=== PATIENT | female | born 1990 | race Caucasian/White ===

== ENCOUNTER 2016-07-29 12:57 | Emergency (ER) | payer OTHER ==
--- NOTE | 2016-07-29 14:06 | EDDOCDS ---
Nurse's Notes [facility] Name: Margaret Tavera Age: 26 yrs Sex: Female : 1990 Arrival Date: 07/29/2016 Time: 12:57 Bed TR8 Private MD: Diagnosis: Chronic tension-type headache Presentation: 07/29 13:08 Presenting complaint: Patient states: that she has had a migraine for 5 days. This ms18 patient has no additional risk factors. Adult Sepsis Screening: The patient does not have new or worsening altered mentation. Patient's respiratory rate is less than 22. Systolic blood pressure is greater than 100. Patient has a qSOFA score of 0- Negative Sepsis Screen. Suicide/Homicide risk assessment- the patient denies having any suicidal and/or homicidal ideations and does not present with any other emotional, behavioral or mental health complaints. Status: Patient is not a mechanic field service or dependent. Transition of care: patient was not received from another setting of care. 13:08 Method Of Arrival: Walkin/Carried/Asstd ms18 13:08 Acuity: RUDOLPH Level 3 ms18 Triage Assessment: 13:09 Headache History: This headache is like all previous headaches. General: Appears in no ms18 apparent distress, Behavior is appropriate for age, cooperative. Pain: Pain currently is 8 out of 10 on a pain scale. Pain began 5 days ago Also complains of nausea, photophobia. HIV screening NA for this visit Offered previously. Neurological: Level of Consciousness is awake, alert, obeys commands, Oriented to person, place, time, Moves all extremities. Gait is steady, Speech is normal, Facial symmetry appears normal. Respiratory: No deficits noted. Derm: Skin is pink, warm & dry. 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 albuterol sulfate 90 mcg/actuation Inhl HFAA 1 puff every 4-6 hours as needed 2. Benadryl 25 mg Oral cap as needed 3. Excedrin Migraine 250-250-65 mg Oral tab as needed - PMHx: Asthma; Migraine Headaches; - PSHx: R eye; Appendectomy; - Social history: Smoking status: Patient uses tobacco products, current every day smoker. No barriers to communication noted, The patient speaks fluent Guyanese. - Family history: Not pertinent. - : The pt / caregiver states he / she is not on anticoagulants. Home medication list is obtained from the patient. - Exposure Risk Screening:: None identified. Screenin:56 Screening information is obtained from the patient. Fall risk: No risks identified. ttb Assistance ADL's: requires no assistance with activities of daily living. Abuse/DV Screen: The patient / caregiver reports he/she is: not in a situation that causes fear, pain or injury. Nutritional screening: No deficits noted. Advance Directives: Currently, there is no health care proxy. home support is adequate. Assessment: 13:56 General: Appears in no apparent distress, well nourished, well groomed, Behavior is ttb appropriate for age, cooperative, pleasant. Pain: Location: head. Neurological: Level of Consciousness is awake, alert, Oriented to person, place, time, Moves all extremities. Gait is steady, Speech is normal, Facial symmetry appears normal. Cardiovascular: Chest pain is denied. Respiratory: No deficits noted. Airway is patent Respiratory effort is even, unlabored, Denies cough, shortness of breath. Derm: Skin is normal. Injury Description: No known injury. 13:57 General: pt states she is still waiting to get into neurologist....medicaid cab ttb requested and called per request. Vital Signs: 12:59 BP 115 / 65; Pulse 89; Resp 18; Temp 98.4(O); Pulse Ox 99% on R/A; Weight 52.16 kg (R); elp Height 5 ft. 7 in. (170.18 cm) (R); Pain 8/10; 12:59 Body Mass Index 18.01 (52.16 kg, 170.18 cm) [facility] Vitals: 12:59 Log In Time: July 29, 2016 at 12:57. [facility] ED Course: 12:58 Patient visited by Juliana Lorenzo PCA. elp 12:58 Patient moved to Waiting elp 12:59 Patient visited by Juliana Lorenzo PCA. elp 12:59 Patient moved to Pre RCE elp 13:08 Triage Initiated ms18 13:11 Patient moved to Triage 1 ms18 13:38 [facility] Wick [facility] btw 13:39 Saurav Renee MD is Attending Physician. btw 13:39 Patient visited by Brody Wick PA. btw 13:56 The patient / caregiver is instructed regarding the plan of care and ED course. Patient ttb has correct armband on for positive identification. 13:56 No IV's were initiated during this patient's visit. No procedures done that require ttb assistance. 14:04 Patient moved to TR8 jb5 Order Results: There are currently no results for this order. Outcome: 13:46 Discharge ordered by Provider. btw 13:56 Discharge Assessment: Patient awake, alert and oriented x 3. No cognitive and/or ttb functional deficits noted. Patient verbalized understanding of disposition instructions. Patient awake and alert. patient administered narcotics - no. The following High Risk Discharge criteria are identified: None. Discharged to home ambulatory. Condition: good Condition: stable. Discharge instructions given to patient, Instructed on discharge instructions, follow up and referral plans. medication usage, Demonstrated understanding of instructions, medications, Pt was receptive of discharge instructions/ teaching. Prescriptions given X 2. No special radiology studies were completed. Property :Personal belongings accompany Pt. 14:06 Patient left the ED. ttb Signatures: Dunia Souza, SLIMER SLIMER jb5 Brody Wick PA PA btEmily Carter, RN RN ttb Juliana Lorenzo, SLIMER SLIMER khuship Itzel Hernandez,RN RN ms18 Corrections: (The following items were deleted from the chart) 13:10 13:08 Acuity: RUDOLPH Level 4 ms18 ms18 MTDD
--- NOTE | 2016-07-29 14:06 | EDDOCDS ---
Physician Documentation [facility] Name: Mragaret Tavera Age: 26 yrs Sex: Female : 1990 Arrival Date: 07/29/2016 Time: 12:57 Bed TR8 Private MD: Disposition: 07/29/16 13:46 Discharged to Home/Self Care. Impression: Chronic tension-type headache. - Condition is Stable. - Discharge Instructions: Tension Headache, [id number]. - Prescriptions for Robaxin 500 mg Oral Tablet - take 1 tablet by ORAL route every 6 hours As needed; 40 tablet. etodolac 200 mg Oral Capsule - take 1 capsule by ORAL route 3 times per day; 30 capsule. - Medication Reconciliation, Local Pharmacy Hours form. - Follow up: Private Physician; When: Call to arrange an appointment; Reason: Further diagnostic work-up, Recheck today's complaints, Continuance of care. - Problem is an ongoing problem. - Symptoms are unchanged. Historical: - Allergies: Bactrim; PENICILLINS; - Home Meds: 1. albuterol sulfate 90 mcg/actuation Inhl HFAA 1 puff every 4-6 hours as needed 2. Benadryl 25 mg Oral cap as needed 3. Excedrin Migraine 250-250-65 mg Oral tab as needed - PMHx: Asthma; Migraine Headaches; - PSHx: R eye; Appendectomy; - Social history: Smoking status: Patient uses tobacco products, current every day smoker. No barriers to communication noted, The patient speaks fluent Albanian. - Family history: Not pertinent. - : The pt / caregiver states he / she is not on anticoagulants. Home medication list is obtained from the patient. - Exposure Risk Screening:: None identified. 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 7 in. (170.18 cm) (R); Pain 8/10; 12:59 Body Mass Index 18.01 (52.16 kg, 170.18 cm) elp Signatures: Brody Wick PA PA btw Conner, Teresa, RN RN ttb Itzel Hernandez,OPAL RN ms18 SHANNOND
--- NOTE | 2016-07-31 15:07 | EDDOCDS ---
Physician Documentation [facility] Name: Margaret Tavera Age: 26 yrs Sex: Female : 1990 Arrival Date: 07/29/2016 Time: 12:57 Bed TR8 Private MD: Disposition: 07/29/16 13:46 Discharged to Home/Self Care. Impression: Chronic tension-type headache. - Condition is Stable. - Discharge Instructions: Tension Headache, [id number]. - Prescriptions for Robaxin 500 mg Oral Tablet - take 1 tablet by ORAL route every 6 hours As needed; 40 tablet. etodolac 200 mg Oral Capsule - take 1 capsule by ORAL route 3 times per day; 30 capsule. - Medication Reconciliation, Local Pharmacy Hours form. - Follow up: Private Physician; When: Call to arrange an appointment; Reason: Further diagnostic work-up, Recheck today's complaints, Continuance of care. - Problem is an ongoing problem. - Symptoms are unchanged. Historical: - Allergies: Bactrim; PENICILLINS; - Home Meds: 1. albuterol sulfate 90 mcg/actuation Inhl HFAA 1 puff every 4-6 hours as needed 2. Benadryl 25 mg Oral cap as needed 3. Excedrin Migraine 250-250-65 mg Oral tab as needed - PMHx: Asthma; Migraine Headaches; - PSHx: R eye; Appendectomy; - Social history: Smoking status: Patient uses tobacco products, current every day smoker. No barriers to communication noted, The patient speaks fluent Divehi. - Family history: Not pertinent. - : The pt / caregiver states he / she is not on anticoagulants. Home medication list is obtained from the patient. - Exposure Risk Screening:: None identified. 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 7 in. (170.18 cm) (R); Pain 8/10; 12:59 Body Mass Index 18.01 (52.16 kg, 170.18 cm) elp MDM: 14:19 [facility] Payment Agreement was scanned into [employer] and attached to record. lg 15:38 T-Sheet-- Draft Copy was scanned into [employer] and attached to record. gb Signatures: Lynne Jimenez, Reg Reg gb Lola Lakhani, Reg Reg lg Brody Wick PA PA btw Conner, Teresa RN RN ttb Itzel Hernandez RN RN ms18 The chart was reviewed and I authenticate all verbal orders and agree with the evaluation and treatment provided.Attachments: 14:19 [facility] Payment Agreement lg 15:38 T-Sheet-- Draft Copy gb Chart Complete MTDD
--- NOTE | 2016-07-31 15:07 | EDDOCDS ---
Nurse's Notes [facility] Name: Margaret Tavera Age: 26 yrs Sex: Female : 1990 Arrival Date: 07/29/2016 Time: 12:57 Bed TR8 Private MD: Diagnosis: Chronic tension-type headache Presentation: 07/29 13:08 Presenting complaint: Patient states: that she has had a migraine for 5 days. This ms18 patient has no additional risk factors. Adult Sepsis Screening: The patient does not have new or worsening altered mentation. Patient's respiratory rate is less than 22. Systolic blood pressure is greater than 100. Patient has a qSOFA score of 0- Negative Sepsis Screen. Suicide/Homicide risk assessment- the patient denies having any suicidal and/or homicidal ideations and does not present with any other emotional, behavioral or mental health complaints. Status: Patient is not a environmental services coordinator or dependent. Transition of care: patient was not received from another setting of care. 13:08 Method Of Arrival: Walkin/Carried/Asstd ms18 13:08 Acuity: RUDOLPH Level 3 ms18 Triage Assessment: 13:09 Headache History: This headache is like all previous headaches. General: Appears in no ms18 apparent distress, Behavior is appropriate for age, cooperative. Pain: Pain currently is 8 out of 10 on a pain scale. Pain began 5 days ago Also complains of nausea, photophobia. HIV screening NA for this visit Offered previously. Neurological: Level of Consciousness is awake, alert, obeys commands, Oriented to person, place, time, Moves all extremities. Gait is steady, Speech is normal, Facial symmetry appears normal. Respiratory: No deficits noted. Derm: Skin is pink, warm & dry. 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 albuterol sulfate 90 mcg/actuation Inhl HFAA 1 puff every 4-6 hours as needed 2. Benadryl 25 mg Oral cap as needed 3. Excedrin Migraine 250-250-65 mg Oral tab as needed - PMHx: Asthma; Migraine Headaches; - PSHx: R eye; Appendectomy; - Social history: Smoking status: Patient uses tobacco products, current every day smoker. No barriers to communication noted, The patient speaks fluent Anguillan. - Family history: Not pertinent. - : The pt / caregiver states he / she is not on anticoagulants. Home medication list is obtained from the patient. - Exposure Risk Screening:: None identified. Screenin:56 Screening information is obtained from the patient. Fall risk: No risks identified. ttb Assistance ADL's: requires no assistance with activities of daily living. Abuse/DV Screen: The patient / caregiver reports he/she is: not in a situation that causes fear, pain or injury. Nutritional screening: No deficits noted. Advance Directives: Currently, there is no health care proxy. home support is adequate. Assessment: 13:56 General: Appears in no apparent distress, well nourished, well groomed, Behavior is ttb appropriate for age, cooperative, pleasant. Pain: Location: head. Neurological: Level of Consciousness is awake, alert, Oriented to person, place, time, Moves all extremities. Gait is steady, Speech is normal, Facial symmetry appears normal. Cardiovascular: Chest pain is denied. Respiratory: No deficits noted. Airway is patent Respiratory effort is even, unlabored, Denies cough, shortness of breath. Derm: Skin is normal. Injury Description: No known injury. 13:57 General: pt states she is still waiting to get into neurologist....medicaid cab ttb requested and called per request. Vital Signs: 12:59 BP 115 / 65; Pulse 89; Resp 18; Temp 98.4(O); Pulse Ox 99% on R/A; Weight 52.16 kg (R); elp Height 5 ft. 7 in. (170.18 cm) (R); Pain 8/10; 12:59 Body Mass Index 18.01 (52.16 kg, 170.18 cm) [facility] Vitals: 12:59 Log In Time: July 29, 2016 at 12:57. [facility] ED Course: 12:58 Patient visited by Juliana Lorenzo PCA. elp 12:58 Patient moved to Waiting elp 12:59 Patient visited by Juliana Lorenzo PCA. elp 12:59 Patient moved to Pre RCE elp 13:08 Triage Initiated ms18 13:11 Patient moved to Triage 1 ms18 13:38 [facility]. btw 13:39 Saurav Renee MD is Attending Physician. btw 13:39 Patient visited by Brody Wick PA. btw 13:56 The patient / caregiver is instructed regarding the plan of care and ED course. Patient ttb has correct armband on for positive identification. 13:56 No IV's were initiated during this patient's visit. No procedures done that require ttb assistance. 14:04 Patient moved to 8 5 14:19 [facility] Payment Agreement was scanned into [employer] and attached to record. lg 15:38 T-Sheet-- Draft Copy was scanned into [employer] and attached to record. gb Order Results: There are currently no results for this order. Outcome: 13:46 Discharge ordered by Provider. btw 13:56 Discharge Assessment: Patient awake, alert and oriented x 3. No cognitive and/or ttb functional deficits noted. Patient verbalized understanding of disposition instructions. Patient awake and alert. patient administered narcotics - no. The following High Risk Discharge criteria are identified: None. Discharged to home ambulatory. Condition: good Condition: stable. Discharge instructions given to patient, Instructed on discharge instructions, follow up and referral plans. medication usage, Demonstrated understanding of instructions, medications, Pt was receptive of discharge instructions/ teaching. Prescriptions given X 2. No special radiology studies were completed. Property :Personal belongings accompany Pt. 14:06 Patient left the ED. ttb Signatures: Lynne Jimenez, Reg Reg gb Lola Lakhani, Reg Reg lg Dunia Souza, MEDICAL RECORDS ASSISTANT MEDICAL RECORDS ASSISTANT jb5 Brody Wick PA PA btw Conner, Teresa RN RN ttb Juliana Lorenzo, MEDICAL RECORDS ASSISTANT MEDICAL RECORDS ASSISTANT Itzel Elkins,OPAL RN ms18 Corrections: (The following items were deleted from the chart) 13:10 13:08 Acuity: RUDOLPH Level 4 ms18 ms18 Chart Complete MTDD
--- NOTE | 2016-07-31 15:07 | EDDOCDS ---
Physician Documentation [facility] Name: Margaret Tavera Age: 26 yrs Sex: Female : 1990 Arrival Date: 07/29/2016 Time: 12:57 Bed TR8 Private MD: Disposition: 07/29/16 13:46 Discharged to Home/Self Care. Impression: Chronic tension-type headache. - Condition is Stable. - Discharge Instructions: Tension Headache, [id number]. - Prescriptions for Robaxin 500 mg Oral Tablet - take 1 tablet by ORAL route every 6 hours As needed; 40 tablet. etodolac 200 mg Oral Capsule - take 1 capsule by ORAL route 3 times per day; 30 capsule. - Medication Reconciliation, Local Pharmacy Hours form. - Follow up: Private Physician; When: Call to arrange an appointment; Reason: Further diagnostic work-up, Recheck today's complaints, Continuance of care. - Problem is an ongoing problem. - Symptoms are unchanged. Historical: - Allergies: Bactrim; PENICILLINS; - Home Meds: 1. albuterol sulfate 90 mcg/actuation Inhl HFAA 1 puff every 4-6 hours as needed 2. Benadryl 25 mg Oral cap as needed 3. Excedrin Migraine 250-250-65 mg Oral tab as needed - PMHx: Asthma; Migraine Headaches; - PSHx: R eye; Appendectomy; - Social history: Smoking status: Patient uses tobacco products, current every day smoker. No barriers to communication noted, The patient speaks fluent Malay. - Family history: Not pertinent. - : The pt / caregiver states he / she is not on anticoagulants. Home medication list is obtained from the patient. - Exposure Risk Screening:: None identified. 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 7 in. (170.18 cm) (R); Pain 8/10; 12:59 Body Mass Index 18.01 (52.16 kg, 170.18 cm) elp MDM: 14:19 [facility] Payment Agreement was scanned into [employer] and attached to record. lg 15:38 T-Sheet-- Draft Copy was scanned into [employer] and attached to record. gb Signatures: Lynne Jimenez, Reg Reg gb Lola Lakhani, Reg Reg lg Brody Wick PA PA btw Conner, Teresa RN RN ttb Itzel Hernandez RN RN ms18 The chart was reviewed and I authenticate all verbal orders and agree with the evaluation and treatment provided.Attachments: 14:19 [facility] [place] Agreement lg 15:38 T-Sheet-- Draft Copy gb Chart Complete MTDD
== END 2016-07-29 14:06 | disposition home or self-care (01) ==
LOC: M ED 12:57
DX: G44.229 Chronic tension-type headache, not intractable (principal); J45.909 Unspecified asthma, uncomplicated; F17.200 Nicotine dependence, unspecified, uncomplicated; Z79.899 Other long term (current) drug therapy; Z88.0 Allergy status to penicillin; Z88.1 Allergy status to other antibiotic agents; G43.909 Migraine, unspecified, not intractable, without status migrainosus

== ENCOUNTER → 2016-07-29 | Outpatient (CLI) | payer OTHER ==
[2016-07-29 13:17] LABS: MEAN CORPUSCULAR HEMOGLOBIN 31.6 pg (27.0-33.0); MEAN CORPUSCULAR HGB CONC 33.1 g/dl (32.0-36.5); MEAN CORPUSCULAR VOLUME 95.4 fl (80.0-96.0); RED CELL DISTRIBUTION WIDTH 12.2 % (11.5-14.5); WHITE BLOOD COUNT 11.9 K/mm3 (4.0-10.0)
[2016-07-29 13:47] LABS: ALBUMIN 3.8 GM/DL (3.2-5.2); ALBUMIN/GLOBULIN RATIO 1.27 (1.00-1.93); ALKALINE PHOSPHATASE 75 U/L (45-117); ALT/SGPT 27 U/L (12-78); ANION GAP 5 MEQ/L (8-16); AST/SGOT 17 U/L (15-37); BILIRUBIN,TOTAL 0.2 MG/DL (0.2-1.0); BLOOD UREA NITROGEN 11 MG/DL (7-18); CALCIUM LEVEL 8.7 MG/DL (8.5-10.1); CARBON DIOXIDE LEVEL 29 MEQ/L (21-32); CHLORIDE LEVEL 110 MEQ/L (98-107); FOLATE 4.1 NG/ML (>5.4); FREE T4 0.99 NG/DL (0.76-1.46); GLOMERULAR FILTRATION RATE > 60.0 (>60); GLUCOSE, FASTING 81 MG/DL (70-105); POTASSIUM SERUM 4.6 MEQ/L (3.5-5.1); SODIUM LEVEL 144 MEQ/L (136-145); TOTAL PROTEIN 6.8 GM/DL (6.4-8.2); VITAMIN B12 LEVEL 325 PG/ML (247-911)
== END ==
LOC: M LAB 12:34
PROVIDERS: ATTEND Nurse Practitioner Family
DX: R63.4 Abnormal weight loss (principal)

== ENCOUNTER 2016-08-23 11:12 | Emergency (ER) | payer OTHER ==
[~2016-08-23] VITALS: Ht 172.7 cm; Wt 54.4 kg
[2016-08-23 11:41] VITALS: BP 110/62
--- NOTE | 2016-08-23 14:38 | REP ---
Anterior knee pain after trauma. COMPARISON: None. FINDINGS: The compartments are symmetric and relatively well maintained. There is no acute fracture or destructive osseous lesion. Signed by Fabián Delcid DO 08/23/2016 03:49 P
[2016-08-23] MEDS ORDERED: KEFL500C7 PO (14:39)
[2016-08-23] MEDS ORDERED: IBUP600T26 PO (14:40)
== END 2016-08-23 14:50 | disposition home or self-care (01) ==
LOC: M ED 12:44
DX: S81.011A Laceration without foreign body, right knee, initial encounter (principal); W22.8XXA Striking against or struck by other objects, initial encounter; Y92.099 Unspecified place in other non-institutional residence as the place of occurrence of the external cause; Y93.9 Activity, unspecified; Y99.9 Unspecified external cause status; Z88.0 Allergy status to penicillin; Z88.2 Allergy status to sulfonamides

== ENCOUNTER 2016-11-14 18:12 | Emergency (ER) | payer OTHER ==
[~2016-11-14] VITALS: Ht 170.2 cm; Wt 53.5 kg
[2016-11-14 18:12] VITALS: BP 111/64
[~2016-11-14 18:12] MED LIST: ALBU83IN INH; BENA25CA4 PO; EXCETAB80 PO; IBUP600T26 PO; KEFL500C7 PO; TRAM50TA2 PO; ZOFR4TAB3 PO
[2016-11-14] MEDS ORDERED: IBUP600T26 PO (18:30)
[2016-11-14] MEDS ORDERED: GABA600T (18:30)
[2016-11-15] MEDS ORDERED: BENA25TA9 PO (14:03)
[2016-11-15] MEDS ORDERED: VICO5TAB16 PO (15:08)
== END 2016-11-14 20:17 | disposition left against medical advice (07) ==
LOC: M ED 19:04
DX: Z53.29 Procedure and treatment not carried out because of patient's decision for other reasons (principal)

== ENCOUNTER 2016-11-15 13:52 | Emergency (ER) | payer OTHER ==
[~2016-11-15] VITALS: Ht 172.7 cm; Wt 53.5 kg
[~2016-11-15 13:52] MED LIST changes: +GABA600T
[2016-11-15 13:53] VITALS: BP 109/60
[2016-11-15] MEDS ORDERED: BENA25TA9 PO (14:03)
--- NOTE | 2016-11-15 14:38 | REP ---
Clinical: Left rib pain with recent trauma. Technique: Frontal view of the chest with multiple views of the left hemithorax. Findings: There is evidence for an acute nondisplaced lateral left sixth rib fracture. Subtle lateral seventh rib fracture cannot be excluded as well. No associated consolidation or pneumothorax. Impression: Nondisplaced left lateral sixth rib fracture. Possible seventh rib fracture cannot be excluded as well. Signed by Clinton Vega MD 11/15/2016 02:30 P
[2016-11-15] MEDS ORDERED: VICO5TAB16 PO (15:08)
[2016-11-15] MEDS ORDERED: NAPROXEN 250 MG TAB PO ONE (15:15)
== END 2016-11-15 15:28 | disposition home or self-care (01) ==
LOC: M ED 14:57
DX: S22.32XA Fracture of one rib, left side, initial encounter for closed fracture (principal); W50.0XXA Accidental hit or strike by another person, initial encounter; Y92.9 Unspecified place or not applicable; Y93.72 Activity, wrestling; Y99.9 Unspecified external cause status; F17.200 Nicotine dependence, unspecified, uncomplicated; Z79.899 Other long term (current) drug therapy; Z88.0 Allergy status to penicillin

== ENCOUNTER 2017-02-28 15:51 | Emergency (ER) | payer OTHER ==
[~2017-02-28] VITALS: Ht 170.2 cm; Wt 50.0 kg
[~2017-02-28 15:51] MED LIST changes: +BENA25TA10 PO; +IBUP-1022 PO; -IBUP600T26 PO; +KEFL500C17 PO; -KEFL500C7 PO; +VICO5TAB16 PO
[2017-02-28 15:53] VITALS: BP 110/67
[2017-02-28] MEDS ORDERED: ULTR50TA8 PO (17:57)
[2017-02-28] MEDS ORDERED: traMADol 50 MG TAB PO ONE (18:00)
[2017-02-28] MEDS ORDERED: ONDANSETRON 4 MG ORAL DISINTEGRATING TAB (S0181) PO ONE (18:00)
== END 2017-02-28 18:22 | disposition home or self-care (01) ==
LOC: M ED 15:51
DX: G43.909 Migraine, unspecified, not intractable, without status migrainosus (principal); F17.200 Nicotine dependence, unspecified, uncomplicated; Z79.899 Other long term (current) drug therapy; Z88.0 Allergy status to penicillin

== ENCOUNTER → 2017-03-07 | Outpatient (CLI) | payer OTHER ==
[~2017-03-07] MED LIST changes: +ULTR50TA8 PO
--- NOTE | 2017-03-07 10:49 | REP ---
CT MAXILLOFACIAL WITHOUT CONTRAST: 03/07/2017. Clinical history: Sinus nasal cyst. Findings: No prior study. Noncontrast technique utilized with coronal reconstruction. The nasal septum is midline. Computer Forensic Examiner image shows the patient is edentulous. There is a metallic tongue stud in the midline as well. Sphenoid sinuses, ethmoid and frontal sinuses in the right maxillary sinus are clear. Floor of the left maxillary sinus is a mucous retention cyst 2.1 x 1.9 x 1.7 cm. There is no destructive bone lesion or thickening of the sinus campos. Nasal bones and the nasal spine of the maxilla were intact. The left orbit shows normal globe and contents. The right orbit shows a postoperative change. This is stable since the CT brain in 2012. The ostiomeatal complexes are patent with no stenosis of the ostium or infundibulum. Hiatus semilunaris intact. No barbara bullosa of the middle turbinates. Bony skull base and mastoids intact. Impression: 1. 2.1 x 1.9 x 1.7 cm mucous retention cyst floor of the left maxillary sinus. The other sinuses and all the mastoids intact. 2. No acute bony finding. There are postoperative changes in the right orbit and globe. 3. No other significant finding. Signed by Ramsey Heck MD 03/07/2017 04:11 P
== END ==
LOC: M RAD 10:10
PROVIDERS: ATTEND Nurse Practitioner Family
DX: J34.1 Cyst and mucocele of nose and nasal sinus (principal)

== ENCOUNTER → 2017-05-29 | Outpatient (CLI) | payer OTHER ==
[2017-05-29 14:53] LABS: FREE T4 0.93 NG/DL (0.76-1.46)
== END ==
LOC: M LAB 13:14
PROVIDERS: ATTEND Nurse Practitioner Family
DX: R94.6 Abnormal results of thyroid function studies (principal)

== ENCOUNTER → 2017-06-14 | Outpatient (REF) | payer OTHER | LOC: M LAB REF 18:56 | PROVIDERS: ATTEND Obstetrics & Gynecology | DX: Z12.4 Encounter for screening for malignant neoplasm of cervix (principal); B96.89 Other specified bacterial agents as the cause of diseases classified elsewhere ==

== ENCOUNTER → 2017-09-25 | Outpatient (CLI) | payer OTHER ==
[2017-09-25 16:14] LABS: HCG, SERUM QUANTITATIVE 30967 MIU/ML
== END ==
LOC: M LAB 14:55
DX: N91.2 Amenorrhea, unspecified (principal)
CPT/HCPCS: 84702

== ENCOUNTER 2017-11-23 17:07 | Emergency (ER) | payer OTHER, MEDICAID | END 2017-11-23 17:54 | disposition admitted as inpatient to this hospital (09) | LOC: M ED 17:07 | DX: Z04.1 Encounter for examination and observation following transport accident (principal); O26.892 Other specified pregnancy related conditions, second trimester; R10.2 Pelvic and perineal pain; V49.59XA Passenger injured in collision with other motor vehicles in traffic accident, initial encounter; Y92.410 Unspecified street and highway as the place of occurrence of the external cause; Z3A.27 27 weeks gestation of pregnancy; Z88.0 Allergy status to penicillin; Z88.2 Allergy status to sulfonamides; Z88.8 Allergy status to other drugs, medicaments and biological substances | CPT/HCPCS: 99283 ==

== ENCOUNTER 2017-11-23 17:57 | Outpatient (CLI) | payer OTHER | END 2017-11-23 19:40 | disposition home or self-care (01) | LOC: M LDO 17:57 | DX: Z04.3 Encounter for examination and observation following other accident (principal); R10.9 Unspecified abdominal pain; Z3A.27 27 weeks gestation of pregnancy | CPT/HCPCS: G0463 ==

== ENCOUNTER → 2018-01-01 | Outpatient (REF) | payer OTHER ==
[2018-01-01 22:13] LABS: APPEARANCE, URINE CLOUDY (CLEAR); BACTERIA, URINE AUTO 1+ (NEGATIVE); BILIRUBIN, URINE AUTO NEGATIVE (NEGATIVE); BLOOD, URINE BLOOD NEGATIVE (NEGATIVE); CALCIUM OXALATE CRYSTALS SMALL; COLOR, URINE AMBER (YELLOW); GLUCOSE, URINE (UA) AUTO NEGATIVE (NEGATIVE); KETONE, URINE AUTO TRACE mg/dL (NEGATIVE); LEUKOCYTE ESTERASE, URINE AUTO 2+ (NEGATIVE); MUCUS, URINE SMALL (NEGATIVE); NITRITE, URINE AUTO NEGATIVE (NEGATIVE); PROTEIN, URINE AUTO 1+ mg/dL (NEGATIVE); RBC, URINE AUTO 3 /HPF (0-3); SPECIFIC GRAVITY URINE AUTO 1.025 (1.002-1.035); SQUAMOUS EPITHELIAL CELL UR AU 7 /HPF (0-6); WBC, URINE AUTO 9 /HPF (0-3)
== END ==
LOC: M LAB REF 09:07
DX: N39.0 Urinary tract infection, site not specified (principal)

== ENCOUNTER 2018-01-03 15:01 | Emergency (ER) | payer OTHER | END 2018-01-03 16:03 | disposition admitted as inpatient to this hospital (09) | LOC: M ED 15:01 | DX: M54.9 Dorsalgia, unspecified (principal) ==

== ENCOUNTER 2018-01-03 16:08 | Observation (INO) | payer OTHER ==
[2018-01-03 16:56] LABS: APPEARANCE, URINE CLOUDY (CLEAR); BACTERIA, URINE AUTO 1+ (NEGATIVE); BILIRUBIN, URINE AUTO NEGATIVE (NEGATIVE); BLOOD, URINE BLOOD NEGATIVE (NEGATIVE); COLOR, URINE YELLOW (YELLOW); GLUCOSE, URINE (UA) AUTO 1+ mg/dL (NEGATIVE); KETONE, URINE AUTO TRACE mg/dL (NEGATIVE); LEUKOCYTE ESTERASE, URINE AUTO 3+ (NEGATIVE); MUCUS, URINE SMALL (NEGATIVE); NITRITE, URINE AUTO NEGATIVE (NEGATIVE); PROTEIN, URINE AUTO NEGATIVE (NEGATIVE); RBC, URINE AUTO 8 /HPF (0-3); SPECIFIC GRAVITY URINE AUTO 1.011 (1.002-1.035); SQUAMOUS EPITHELIAL CELL UR AU 14 /HPF (0-6); UROBILINOGEN, URINE AUTO 0.2 mg/dL (0.0-2.0); WBC, URINE AUTO 25 /HPF (0-3)
[2018-01-03] MEDS: LACTATED RINGER'S 1000 ML IV ×2 (17:58)
[2018-01-03] MEDS: LR 1,000 ML IV ×4 (17:58→22:58)
[2018-01-03 17:59] LABS: BASO # 0.1 10^3/uL (0.0-0.2); BASO % 0.5 % (0.0-1.0); EOS # 0.4 10^3/uL (0.0-0.50); EOS % 2.3 % (0.0-3.0); HEMATOCRIT 30.6 % (36.0-47.0); HEMOGLOBIN 10.3 g/dl (12.0-15.5); IMMATURE GRANULOCYTE % 0.9 % (0-3.0); LYMPH # 3.4 10^3/uL (1.5-6.5); LYMPH % 20.3 % (24.0-44.0); MEAN CORPUSCULAR HEMOGLOBIN 30.5 pg (27.0-33.0); MEAN CORPUSCULAR HGB CONC 33.7 g/dl (32.0-36.5); MEAN CORPUSCULAR VOLUME 90.5 fl (80.0-96.0); MONO # 1.2 10^3/uL (0.0-0.8); MONO % 6.8 % (0.0-5.0); NEUTROPHILS # 11.7 10^3/uL (1.8-7.7); NEUTROPHILS % 69.2 % (36.0-66.0); PLATELET COUNT, AUTOMATED 344 10^3/uL (150-450); RED BLOOD COUNT 3.38 10^6/uL (4.00-5.40); RED CELL DISTRIBUTION WIDTH 12.7 % (11.5-14.5); WHITE BLOOD COUNT 16.9 10^3/uL (4.0-10.0)
[2018-01-03 18:23] LABS: ALBUMIN 2.5 GM/DL (3.2-5.2); ALBUMIN/GLOBULIN RATIO 0.76 (1.00-1.93); ALKALINE PHOSPHATASE 163 U/L (45-117); ALT/SGPT 18 U/L (12-78); ANION GAP 8 MEQ/L (8-16); AST/SGOT 17 U/L (7-37); BILIRUBIN,TOTAL 0.2 MG/DL (0.2-1.0); BLOOD UREA NITROGEN 5 MG/DL (7-18); CALCIUM LEVEL 8.1 MG/DL (8.5-10.1); CARBON DIOXIDE LEVEL 25 MEQ/L (21-32); CHLORIDE LEVEL 107 MEQ/L (98-107); CREATININE FOR GFR 0.36 MG/DL (0.55-1.30); GLOMERULAR FILTRATION RATE > 60.0 (>60); GLUCOSE, FASTING 74 MG/DL (70-100); POTASSIUM SERUM 3.9 MEQ/L (3.5-5.1); SODIUM LEVEL 140 MEQ/L (136-145); TOTAL PROTEIN 5.8 GM/DL (6.4-8.2)
[2018-01-03] MEDS ORDERED: ACETAMINOPHEN TAB 650MG DOSE (2X325MG) PO ×2 (21:15)
[2018-01-03] MEDS: CYCLOBENZAPRINE 10 MG TAB PO ×2 (21:38)
[2018-01-03] MEDS: NICOTINE 14 MG/24 HR TRANSDERMAL TD ×2 (21:40)
[2018-01-03] MEDS: PERCOCET 5MG/325MG TAB PO ×2 (22:58)
[2018-01-04] MEDS: LR 1,000 ML IV ×6 (04:26→15:23)
[2018-01-04] MEDS: PERCOCET 5MG/325MG TAB PO ×4 (08:01→15:28)
[2018-01-04 08:08] LABS: BASO # 0.1 10^3/uL (0.0-0.2); BASO % 0.7 % (0.0-1.0); EOS # 0.4 10^3/uL (0.0-0.50); EOS % 3.6 % (0.0-3.0); HEMATOCRIT 28.9 % (36.0-47.0); HEMOGLOBIN 9.6 g/dl (12.0-15.5); IMMATURE GRANULOCYTE % 0.7 % (0-3.0); LYMPH # 2.7 10^3/uL (1.5-6.5); LYMPH % 23.2 % (24.0-44.0); MEAN CORPUSCULAR HEMOGLOBIN 30.8 pg (27.0-33.0); MEAN CORPUSCULAR HGB CONC 33.2 g/dl (32.0-36.5); MEAN CORPUSCULAR VOLUME 92.6 fl (80.0-96.0); MONO # 0.9 10^3/uL (0.0-0.8); MONO % 7.9 % (0.0-5.0); NEUTROPHILS # 7.4 10^3/uL (1.8-7.7); NEUTROPHILS % 63.9 % (36.0-66.0); PLATELET COUNT, AUTOMATED 320 10^3/uL (150-450); RED BLOOD COUNT 3.12 10^6/uL (4.00-5.40); RED CELL DISTRIBUTION WIDTH 12.7 % (11.5-14.5); WHITE BLOOD COUNT 11.5 10^3/uL (4.0-10.0)
[2018-01-04] MEDS: NICOTINE 14 MG/24 HR TRANSDERMAL TD ×2 (09:00)
== END 2018-01-05 10:04 | disposition home or self-care (01) ==
LOC: M LDO 16:08 → M OBS 01-04 16:00 → M LDO 01-04 15:22 → M OBS 01-04 15:23 → M SDC 01-04 15:23 → M OBS 01-04 15:24 → M LDO 01-04 16:00 → M SDC 01-05 10:04 → M OBS 01-05 10:04 → M SDC 01-04 15:24 → M OBS 01-04 15:22 → M LDO 01-04 07:00 → M SDC 16:09 → M OBS 01-04 15:24 → M SDC 01-05 10:04 → M OBS 01-05 10:04 → M SDC 01-04 15:24 → M OBS 16:09
DX: O23.43 Unspecified infection of urinary tract in pregnancy, third trimester (principal); Z3A.31 31 weeks gestation of pregnancy
CPT/HCPCS: J0690

== ENCOUNTER → 2018-01-15 | Outpatient (CLI) | payer OTHER | LOC: M RAD 10:04 | DX: Z34.82 Encounter for supervision of other normal pregnancy, second trimester (principal) | CPT/HCPCS: 76816 ==

== ENCOUNTER → 2018-01-15 | Outpatient (CLI) | payer OTHER ==
[2018-01-15 12:13] LABS: BASO # 0.1 10^3/uL (0.0-0.2); BASO % 0.7 % (0.0-1.0); EOS # 0.2 10^3/uL (0.0-0.50); EOS % 1.8 % (0.0-3.0); HEMATOCRIT 30.3 % (36.0-47.0); HEMOGLOBIN 10.1 g/dl (12.0-15.5); IMMATURE GRANULOCYTE % 0.7 % (0-3.0); LYMPH # 2.7 10^3/uL (1.5-6.5); LYMPH % 22.7 % (24.0-44.0); MEAN CORPUSCULAR HEMOGLOBIN 29.8 pg (27.0-33.0); MEAN CORPUSCULAR HGB CONC 33.3 g/dl (32.0-36.5); MEAN CORPUSCULAR VOLUME 89.4 fl (80.0-96.0); MONO # 0.8 10^3/uL (0.0-0.8); MONO % 6.8 % (0.0-5.0); NEUTROPHILS # 7.9 10^3/uL (1.8-7.7); NEUTROPHILS % 67.3 % (36.0-66.0); PLATELET COUNT, AUTOMATED 365 10^3/uL (150-450); RED BLOOD COUNT 3.39 10^6/uL (4.00-5.40); RED CELL DISTRIBUTION WIDTH 12.7 % (11.5-14.5); WHITE BLOOD COUNT 11.7 10^3/uL (4.0-10.0)
[2018-01-15 13:18] LABS: GLUCOSE CHALLENGE TEST 1 HOUR 172 MG/DL (LESS THAN 140)
== END ==
LOC: M LAB 10:30
DX: Z34.82 Encounter for supervision of other normal pregnancy, second trimester (principal); Z36.89 Encounter for other specified antenatal screening
CPT/HCPCS: 82950

== ENCOUNTER → 2018-02-05 | Outpatient (REF) | payer OTHER | LOC: M LAB REF 13:05 | DX: Z34.83 Encounter for supervision of other normal pregnancy, third trimester (principal) ==

== ENCOUNTER 2018-02-18 21:02 | Inpatient (IN) | payer OTHER ==
[2018-02-18] MEDS: LACTATED RINGER'S 1000 ML IV (21:33)
[2018-02-18] MEDS ORDERED: LR 1,000 ML IV (21:33)
[2018-02-18] MEDS ORDERED: OXYTOCIN 30 UNITS IN 0.9% NaCl 500ML IV BAG (J2590) As Ordered (21:45)
[2018-02-18] MEDS ORDERED: FENTANYL 2MCG/ML ROPIVACAINE 0.2% IN 0.9% NACL 200ML IVBAG As Ordered (21:46)
[2018-02-18 21:52] LABS: HEMATOCRIT 31.1 % (36.0-47.0); HEMOGLOBIN 10.2 g/dl (12.0-15.5); MEAN CORPUSCULAR HEMOGLOBIN 28.5 pg (27.0-33.0); MEAN CORPUSCULAR HGB CONC 32.8 g/dl (32.0-36.5); MEAN CORPUSCULAR VOLUME 86.9 fl (80.0-96.0); PLATELET COUNT, AUTOMATED 353 10^3/uL (150-450); RED BLOOD COUNT 3.58 10^6/uL (4.00-5.40); RED CELL DISTRIBUTION WIDTH 13.1 % (11.5-14.5)
[2018-02-18 22:22] LABS: AMPHETAMINES URINE REFLEX NEGATIVE (NEGATIVE); BARBITURATES URINE REFLEX NEGATIVE (NEGATIVE); BENZODIAZEPINES URINE REFLEX NEGATIVE (NEGATIVE); COCAINE METABOLITE URINE REFLE NEGATIVE (NEGATIVE); METHADONE URINE REFLEX NEGATIVE (NEGATIVE); OPIATES URINE REFLEX NEGATIVE (NEGATIVE); PHENCYCLIDINE URINE REFLEX NEGATIVE (NEGATIVE)
[2018-02-18 22:35] LABS: CANNABINOIDS URINE REFLEX PENDING CONFIRMATION (NEGATIVE)
[2018-02-18] MEDS ORDERED: FENTANYL/ROPIVACAINE/NACL BAG 200 ML EPIDURAL (23:15)
[2018-02-18] MEDS ORDERED: ePHEDrine SULFATE 25 MG/5 ML(5MG/ML) SYRINGE IV (23:15)
[2018-02-18] MEDS ORDERED: ONDANSETRON 4MG/2ML VIAL (J2405) IV (23:15)
[2018-02-18] MEDS ORDERED: NALOXONE INJ 0.4 MG/1 ML VIAL (J2310) IV (23:15)
[2018-02-18] MEDS ORDERED: diphenhydrAMINE INJ 50MG/ML VIAL (J1200) IV (23:15)
[2018-02-18] MEDS ORDERED: EPIDURAL/PCA KEYS XX (23:15)
[2018-02-18] MEDS ORDERED: REFRIGERATOR IV KEYS XX (23:15)
[2018-02-18] MEDS ORDERED: EPIDURAL COMMENT XX (23:15)
[2018-02-19] MEDS: OXYTOCIN DRIP 30 UNITS in APPROPRIATE DILUENT 1 EA IV (01:08)
[2018-02-19] MEDS: LR 1,000 ML IV (01:08)
[2018-02-19] MEDS ORDERED: MEASLES,MUMPS,RUBELLA VACCINE INJ (MMR-II) (90707) SC (01:15)
[2018-02-19] MEDS ORDERED: ONDANSETRON 4MG/2ML VIAL (J2405) IV (01:15)
[2018-02-19] MEDS ORDERED: DIBUCAINE 1% OINTMENT 30GM TOP (01:15)
[2018-02-19] MEDS ORDERED: RHOGAM 300 MCG (1500 IU) INJ (J2790) IM (01:15)
[2018-02-19] MEDS ORDERED: DOCUSATE SODIUM 100 MG CAP PO (01:15)
[2018-02-19] MEDS ORDERED: PROMETHAZINE 25 MG TAB PO (01:15)
[2018-02-19] MEDS: IBUPROFEN 800 MG TAB PO ×3 (02:04→20:28)
[2018-02-19] MEDS: ACETAMINOPHEN 500 MG TAB PO ×2 (07:52→17:35)
[2018-02-19] MEDS: PRENATAL VITAMINS CHEWABLE TABLET PO (07:53)
[2018-02-19] MEDS: oxyCODONE 5MG TAB PO ×2 (13:22→20:28)
[2018-02-19] MEDS: NICOTINE 14 MG/24 HR TRANSDERMAL TD (17:28)
[2018-02-20] MEDS: IBUPROFEN 800 MG TAB PO ×2 (05:17→11:57)
[2018-02-20] MEDS: ACETAMINOPHEN 500 MG TAB PO ×2 (05:17→15:10)
[2018-02-20] MEDS: oxyCODONE 5MG TAB PO ×2 (05:17→11:57)
[2018-02-20] MEDS: PRENATAL VITAMINS CHEWABLE TABLET PO (09:55)
[2018-02-20] MEDS: NICOTINE 14 MG/24 HR TRANSDERMAL TD (11:56)
[2018-02-20] MEDS: ADACEL/BOOSTRIX VACCINE (DIPHTH/PERTUSS/ACELL/TETANUS)0.5ML SYR (90715) IM (15:09)
[2018-02-20] MEDS: medroxyPROGESTERone ACET IM SUSP 150 MG/ML VIAL (J1050) IM (15:10)
[2018-02-22 10:50] LABS: Cannabinoid Positive (.); GC Carboxy THC 483 ng/mL (Cutoff=10)
== END 2018-02-20 17:35 | disposition home or self-care (01) | DRG 560 ==
LOC: M LDO 21:02 → M OBS 02-19 03:10 → M LDI 21:24
PROVIDERS: Obstetrics & Gynecology
PROC: 10E0XZZ Delivery of Products of Conception, External Approach (ICD-10-PCS; principal; 2018-02-19)
DX: O80 Encounter for full-term uncomplicated delivery (principal); Z37.0 Single live birth; Z3A.39 39 weeks gestation of pregnancy

== ENCOUNTER 2018-04-25 12:50 | Emergency (ER) | payer OTHER ==
[2018-04-25] MEDS: NS 1,000 ML IV (14:16)
[2018-04-25] MEDS: traMADol 50 MG TAB PO (14:17)
[2018-04-25] MEDS: METOCLOPRAMIDE INJ 10MG/2ML VIAL (J2765) IV (14:17)
[2018-04-25] MEDS: diphenhydrAMINE INJ 50MG/ML VIAL (J1200) IV (14:21)
== END 2018-04-25 16:28 | disposition home or self-care (01) ==
LOC: M ED 12:50
DX: G43.909 Migraine, unspecified, not intractable, without status migrainosus (principal); F17.200 Nicotine dependence, unspecified, uncomplicated; Z88.8 Allergy status to other drugs, medicaments and biological substances; Z88.1 Allergy status to other antibiotic agents; Z88.2 Allergy status to sulfonamides; Z88.0 Allergy status to penicillin
CPT/HCPCS: J1200

== ENCOUNTER 2018-05-02 10:20 | Day surgery (SDC) | payer OTHER ==
[~2018-05-02 10:20] MED LIST changes: -ALBU83IN INH; -BENA25CA4 PO; -BENA25TA10 PO; -EXCETAB80 PO; -GABA600T; -IBUP-1022 PO; -KEFL500C17 PO; +MIDAZOLAM INJ 2 MG/2 ML VIAL (J2250) As Ordered; -TRAM50TA2 PO; -ULTR50TA8 PO; -VICO5TAB16 PO; -ZOFR4TAB3 PO; +fentaNYL 100 MCG/2 ML INJECTION (J3010) As Ordered
[2018-05-02] MEDS ORDERED: KETOROLAC 60 MG/2 ML VIAL (J1885) As Ordered (10:21)
[2018-05-02] MEDS: LR 1,000 ML IV (10:43)
[2018-05-02 10:58] LABS: HEMATOCRIT 37.7 % (36.0-47.0); HEMOGLOBIN 12.4 g/dl (12.0-15.5); MEAN CORPUSCULAR HGB CONC 32.9 g/dl (32.0-36.5); MEAN CORPUSCULAR VOLUME 88.1 fl (80.0-96.0); PLATELET COUNT, AUTOMATED 384 10^3/uL (150-450); RED BLOOD COUNT 4.28 10^6/uL (4.00-5.40); RED CELL DISTRIBUTION WIDTH 15.4 % (11.5-14.5)
[2018-05-02] MEDS ORDERED: BUPIVACAINE HCL 0.25% 30 ML VIAL As Ordered (11:03)
[2018-05-02] MEDS ORDERED: ROCURONIUM BROMIDE 50 MG/5 ML VIAL As Ordered (11:05)
[2018-05-02] MEDS ORDERED: LIDOCAINE 2% INJ 100 MG/5 ML SDV (FOR ANES.) As Ordered (11:05)
[2018-05-02] MEDS ORDERED: dexameTHASONE 4 MG/ML 1ML VIAL (J1100) As Ordered (11:05)
[2018-05-02] MEDS ORDERED: ONDANSETRON 4MG/2ML VIAL (J2405) As Ordered (11:05)
[2018-05-02] MEDS ORDERED: PROPOFOL 200 MG/20 ML VIAL As Ordered (11:05)
[2018-05-02 11:18] LABS: CONTROL LINE HCG INT CTR LINE PRESENT; HCG, SERUM QUALITATIVE NEGATIVE (NEGATIVE)
[2018-05-02] MEDS ORDERED: fentaNYL 100 MCG/2 ML INJECTION (J3010) As Ordered (11:38)
[2018-05-02] MEDS ORDERED: SUGAMMADEX SODIUM 500 MG/5 ML VIAL (BRIDION) As Ordered (11:59)
[2018-05-02] MEDS ORDERED: SILVER NITRATE APPLICATOR As Ordered ×2 (12:30)
[2018-05-02] MEDS ORDERED: fentaNYL 100 MCG/2 ML INJECTION (J3010) IV (13:00)
[2018-05-02] MEDS ORDERED: LR 1,000 ML IV ×2 (13:00)
[2018-05-02] MEDS: PERCOCET 5MG/325MG TAB PO (13:54)
[2018-05-02] MEDS: ONDANSETRON 4MG/2ML VIAL (J2405) IV (13:58)
== END 2018-05-02 14:37 | disposition home or self-care (01) ==
LOC: M SDC 10:20
DX: Z30.2 Encounter for sterilization (principal); N73.6 Female pelvic peritoneal adhesions (postinfective); K21.9 Gastro-esophageal reflux disease without esophagitis; M12.9 Arthropathy, unspecified; G43.909 Migraine, unspecified, not intractable, without status migrainosus; J45.909 Unspecified asthma, uncomplicated; Z88.0 Allergy status to penicillin; Z88.1 Allergy status to other antibiotic agents; Z79.899 Other long term (current) drug therapy; Z72.0 Tobacco use; Z87.81 Personal history of (healed) traumatic fracture; Z86.59 Personal history of other mental and behavioral disorders; Z86.69 Personal history of other diseases of the nervous system and sense organs
CPT/HCPCS: 58661

== ENCOUNTER → 2019-01-11 | Outpatient (CLI) | payer OTHER ==
[~2019-01-11] MED LIST changes: +ALBU17IN2 INH; +ALBU83IN INH; +BENA25CA4 PO; +BENA25TA10 PO; +CEFD300CAP PO; +COLA100C5 PO; +EXCETAB80 PO; +GABA600T4; +IBUP-1022 PO; +IBUP-1114 PO; +IBUP80TA PO; +KEFL500C17 PO; +MAPA500T2 PO; -MIDAZOLAM INJ 2 MG/2 ML VIAL (J2250) As Ordered; +NICO14PA TD; +PERCOCET PO; +PRENTAB9 PO; +REGL10TA6 PO; +TRAM50TA2 PO; +TUMS500C PO; +ULTR50TA8 PO; +VICO5TAB17 PO; +ZOFR4TAB14 PO; -fentaNYL 100 MCG/2 ML INJECTION (J3010) As Ordered
--- NOTE | 2019-01-11 20:56 | REP ---
RIGHT FOOT, FOUR VIEWS: There is no evidence of an acute fracture, dislocation or intrinsic bone disease. IMPRESSION: No fracture or dislocation. Electronically Signed by Brody Chappell MD 01/13/2019 09:13 P
== END ==
LOC: M WUC 19:32
PROVIDERS: ATTEND Physician Assistant
DX: S90.31XA Contusion of right foot, initial encounter (principal); X58.XXXA Exposure to other specified factors, initial encounter; Y92.9 Unspecified place or not applicable

== ENCOUNTER 2019-06-26 17:38 | Emergency (ER) | payer OTHER ==
[~2019-06-26] VITALS: Ht 172.7 cm; Wt 50.5 kg
[~2019-06-26 17:38] MED LIST changes: -ALBU17IN2 INH; +PROV108A INH
[2019-06-26 17:39] VITALS: BP 113/69
[2019-06-26] MEDS ORDERED: CYCLOBENZAPRINE 5MG TABLET PO ONE (18:15)
[2019-06-26] MEDS ORDERED: IBUPROFEN 800 MG TAB PO ONE (18:15)
[2019-06-26] MEDS ORDERED: IBUP80TA PO (18:16)
[2019-06-26] MEDS ORDERED: CYCL5TAB PO (18:16)
== END 2019-06-26 18:21 | disposition home or self-care (01) ==
LOC: M ED 17:38
DX: S39.012A Strain of muscle, fascia and tendon of lower back, initial encounter (principal); F17.218 Nicotine dependence, cigarettes, with other nicotine-induced disorders; Z88.0 Allergy status to penicillin; Z88.2 Allergy status to sulfonamides; Z88.8 Allergy status to other drugs, medicaments and biological substances; Y92.018 Other place in single-family (private) house as the place of occurrence of the external cause; Y93.89 Activity, other specified

== ENCOUNTER → 2020-08-13 | Outpatient (REF) | payer OTHER ==
[~2020-08-13] MED LIST changes: +CYCL5TAB PO
[2020-08-13 18:12] LABS: BASO # 0.1 10^3/uL (0.0-0.2); BASO % 0.8 % (0.0-1.0); EOS # 0.2 10^3/uL (0.0-0.5); EOS % 2.7 % (0.0-3.0); HEMATOCRIT 41.6 % (36.0-47.0); HEMOGLOBIN 13.6 g/dl (12.0-15.5); LYMPH # 3.1 10^3/uL (1.5-5.0); LYMPH % 34.8 % (24.0-44.0); MEAN CORPUSCULAR HEMOGLOBIN 30.4 pg (27.0-33.0); MEAN CORPUSCULAR HGB CONC 32.7 g/dl (32.0-36.5); MEAN CORPUSCULAR VOLUME 93.1 fl (80.0-96.0); MONO # 0.6 10^3/uL (0.0-0.8); MONO % 6.9 % (2.0-8.0); NEUTROPHILS # 4.9 10^3/uL (1.5-8.5); NEUTROPHILS % 54.6 % (36.0-66.0); PLATELET COUNT, AUTOMATED 321 10^3/uL (150-450); RED BLOOD COUNT 4.47 10^6/uL (4.00-5.40); WHITE BLOOD COUNT 8.9 10^3/uL (4.0-10.0)
[2020-08-13 18:19] LABS: APPEARANCE, URINE CLEAR (CLEAR); BACTERIA, URINE AUTO NEGATIVE (NEGATIVE); BILIRUBIN, URINE AUTO NEGATIVE (NEGATIVE); BLOOD, URINE BLOOD 1+ (NEGATIVE); COLOR, URINE YELLOW (YELLOW); GLUCOSE, URINE (UA) AUTO NEGATIVE (NEGATIVE); KETONE, URINE AUTO NEGATIVE (NEGATIVE); LEUKOCYTE ESTERASE, URINE AUTO NEGATIVE (NEGATIVE); NITRITE, URINE AUTO NEGATIVE (NEGATIVE); PROTEIN, URINE AUTO NEGATIVE (NEGATIVE); RBC, URINE AUTO 4 /HPF (0-3); SPECIFIC GRAVITY URINE AUTO 1.011 (1.002-1.035); SQUAMOUS EPITHELIAL CELL UR AU 2 /HPF (0-6); UROBILINOGEN, URINE AUTO 0.2 mg/dL (0.0-2.0); WBC, URINE AUTO 0 /HPF (0-3)
[2020-08-13 18:41] LABS: HEMOGLOBIN A1c 5.3 %
[2020-08-13 18:48] LABS: ALBUMIN 4.1 GM/DL (3.2-5.2); ALT/SGPT 22 U/L (12-78); BILIRUBIN,TOTAL 0.3 MG/DL (0.2-1.0); BLOOD UREA NITROGEN 6 MG/DL (7-18); CALCIUM LEVEL 9.3 MG/DL (8.5-10.1); CARBON DIOXIDE LEVEL 26 MEQ/L (21-32); CHLORIDE LEVEL 108 MEQ/L (98-107); CHOLESTEROL LEVEL 155 MG/DL (<200); CHOLESTEROL RISK RATIO 3.522 (<5); CREATININE FOR GFR 0.62 MG/DL (0.55-1.30); FERRITIN 13 NG/ML (8-252); FOLATE 8.3 NG/ML; FREE T4 0.94 NG/DL (0.76-1.46); GLOMERULAR FILTRATION RATE > 60.0 (>60); GLUCOSE, FASTING 77 MG/DL (70-100); HDL CHOLESTEROL 44 MG/DL (>40); IRON (FE) 88 UG/DL (50-170); LDL CHOLESTEROL 91 MG/DL (<100); NON-HDL-C 111 MG/DL; PERCENT SATURATION 22.7 % (13.2-45.0); POTASSIUM SERUM 4.2 MEQ/L (3.5-5.1); SODIUM LEVEL 141 MEQ/L (136-145); THYROID STIMULATING HORMONE 0.449 uIU/ML (0.358-3.740); TOTAL 25(OH) VITAMIN D 11.1 NG/ML (30.0-100.0); TOTAL IRON BINDING CAPACITY 387 UG/DL (250-450); TRIGLYCERIDES LEVEL 98 MG/DL (<150); VITAMIN B12 LEVEL 190 PG/ML
[2020-08-13 19:25] LABS: HEPATITIS C VIRUS ABY INDEX 0.1 INDEX (<0.8); HIV 1&2 SCREEN CENTAUR NEGATIVE (NEGATIVE)
== END ==
LOC: M LAB REF 16:34
PROVIDERS: ATTEND Nurse Practitioner Family
DX: Z13.29 Encounter for screening for other suspected endocrine disorder (principal); G43.909 Migraine, unspecified, not intractable, without status migrainosus

== ENCOUNTER → 2020-11-20 | Outpatient (CLI) | payer OTHER ==
--- NOTE | 2020-11-20 15:38 | REP ---
INDICATION: SPRAIN COMPARISON: None. TECHNIQUE: AP, lateral, bilateral oblique views right foot. FINDINGS: The osseous structures and joint spaces are intact and normal. There is no evidence for acute fracture or dislocation. Surrounding soft tissues are unremarkable. No subcutaneous emphysema or radiodense foreign body. IMPRESSION: . No acute fracture or dislocation. <Electronically signed by Clinton Vega > 11/20/20 1530
--- NOTE | 2020-11-20 15:39 | REP ---
INDICATION: SPRAIN COMPARISON: None. TECHNIQUE: AP, lateral, bilateral oblique views. FINDINGS: No acute fracture or dislocation. Skeletal structures and joint spaces are intact and normal. Ankle mortise appears stable. No subcutaneous emphysema or radiodense foreign body. IMPRESSION: Normal right ankle radiograph series. No acute fracture or dislocation. <Electronically signed by Clinton Vega > 11/20/20 0139
== END ==
LOC: M WUC 14:46
PROVIDERS: ATTEND Physician Assistant
DX: S93.401A Sprain of unspecified ligament of right ankle, initial encounter (principal); S93.601A Unspecified sprain of right foot, initial encounter; X58.XXXA Exposure to other specified factors, initial encounter; Y92.89 Other specified places as the place of occurrence of the external cause; Y93.9 Activity, unspecified; Y99.9 Unspecified external cause status

== ENCOUNTER 2021-03-22 19:57 | Emergency (ER) | payer OTHER ==
[~2021-03-22] VITALS: Ht 172.7 cm; Wt 51.5 kg
[2021-03-22 19:57] VITALS: BP 124/77
== END 2021-03-22 21:53 | disposition left against medical advice (07) ==
LOC: M ED 19:57
DX: Z53.21 Procedure and treatment not carried out due to patient leaving prior to being seen by health care provider (principal)

== ENCOUNTER → 2021-03-23 | Outpatient (CLI) | payer OTHER ==
--- NOTE | 2021-03-24 06:42 | REP ---
INDICATION: LOW BACK PAIN COMPARISON: None. TECHNIQUE: AP, lateral, bilateral oblique, and coned-down views of the lumbar spine. FINDINGS: Alignment is maintained and within normal limits. Vertebral bodies are intact. No acute fracture/compression injury or subluxation. Disc spaces are relatively normal/age-appropriate. No obvious spondylolysis or spondylolisthesis. IMPRESSION: Normal age-appropriate lumbosacral Spine series. <Electronically signed by Clinton Vega > 03/24/21 0679
== END ==
LOC: M RAD 18:47
PROVIDERS: ATTEND Physician Assistant
DX: M54.5 Low back pain (principal)

== ENCOUNTER → 2021-09-23 | Outpatient (CLI) | payer OTHER | LOC: M PLAIMG 13:33 | PROVIDERS: ATTEND Physician Assistant | DX: M51.36 Other intervertebral disc degeneration, lumbar region (principal); S39.012D Strain of muscle, fascia and tendon of lower back, subsequent encounter ==

== ENCOUNTER 2022-01-11 14:33 | Outpatient (RCR) | payer OTHER ==
[~2022-01-11 14:33] MED LIST changes: +ALBU2.5V10 INH; -ALBU83IN INH
== END 2022-01-23 ==
LOC: M PT 14:33
PROVIDERS: ATTEND Physician Assistant
DX: M54.16 Radiculopathy, lumbar region (principal)

== ENCOUNTER 2022-02-16 15:45 | Outpatient (RCR) | payer OTHER ==
[~2022-02-16 15:45] MED LIST changes: +ALBU6.7H6 INH; -PROV108A INH
== END 2022-02-23 ==
LOC: M PT 15:45
PROVIDERS: ATTEND Physician Assistant
DX: M54.16 Radiculopathy, lumbar region (principal); S39.012D Strain of muscle, fascia and tendon of lower back, subsequent encounter

== ENCOUNTER 2022-03-07 10:45 | Outpatient (RCR) | payer OTHER | END 2022-03-25 | LOC: M PT 10:45 | PROVIDERS: ATTEND Physician Assistant | DX: M54.16 Radiculopathy, lumbar region (principal); S39.012D Strain of muscle, fascia and tendon of lower back, subsequent encounter ==

== ENCOUNTER 2022-04-20 13:30 | Outpatient (RCR) | payer OTHER | END 2022-04-25 | LOC: M PT 13:30 | PROVIDERS: ATTEND Physician Assistant | DX: M54.50 Low back pain, unspecified (principal) ==